=== PATIENT | female | born 1990 | race Caucasian/White ===

== ENCOUNTER 2021-01-31 20:50 | Inpatient (IN) | payer OTHER ==
[~2021-01-31] VITALS: Ht 165.1 cm; Wt 84.0 kg
[2021-01-31 21:21] VITALS: BP 123/68
[2021-01-31] MEDS ORDERED: TERBUTALINE 1 MG/ML, 1ML IVPush PRN (23:30)
[2021-01-31] MEDS: D5%-LACTATED RINGERS 1,000 ML IV SCH (23:30)
[2021-01-31] MEDS ORDERED: OXYTOCIN 30U/ 0.9% NaCL 500ML 500 ML ONE (23:30)
[2021-01-31] MEDS ORDERED: OXYTOCIN 30U/ 0.9% NaCL 500ML 500 ML IV ONE (23:30)
[2021-01-31] MEDS ORDERED: FENTANYL PF 100 MCG/2ML IVPush PRN (23:30)
[2021-01-31] MEDS ORDERED: TERBUTALINE 1 MG/ML, 1ML SQ PRN (23:30)
[2021-01-31] MEDS ORDERED: FENTANYL PF 100 MCG/2ML IV PRN (23:30)
[2021-01-31] MEDS ORDERED: SODIUM CHLORIDE FLUSH 10ML SYR IVF PRN (23:30)
[2021-01-31] MEDS ORDERED: NEWBORN KIT ONE (23:31)
[2021-01-31] MEDS ORDERED: MISOPROSTOL 200 MCG TABLET ONE (23:31)
[2021-01-31 23:43] LABS: BASOPHILS % (AUTO) 0 % (0-1); EOSINOPHILS % (AUTO) 1 % (1-7); LYMPHOCYTES % (AUTO) 17 % (22-44); MEAN CORPUSCULAR HGB CONC 33.2 g/dL (32.4-35.8); MEAN PLATELET VOLUME 9.3 fL (7.4-10.4); MONOCYTES % (AUTO) 8 % (2-9); NEUTROPHILS % (AUTO) 74 % (42-75); PLATELET COUNT 214 x10^3/uL (130-400); RED BLOOD COUNT 4.04 x10^6/uL (3.82-5.3); RED CELL DISTRIBUTION WIDTH 15.4 % (9.6-15.2)
[2021-02-01] MEDS ORDERED: FENTANYL/BUPIV./NS/PF 250 ML EPIDCONT SCH ×2 (00:30→01:30)
[2021-02-01] MEDS ORDERED: BUPIVACAINE 0.25% ONE (00:55)
[2021-02-01] MEDS: LACTATED RINGERS 1,000 ML IV SCH ×4 (00:56→09:30)
[2021-02-01] MEDS ORDERED: LACTATED RINGERS 1,000 ML IVBOLUS PRN (01:30)
[2021-02-01] MEDS ORDERED: NALOXONE 0.4 MG/ML, 1ML IVPush PRN (01:30)
[2021-02-01] MEDS ORDERED: DIPHENHYDRAMINE 50 MG/ML, 1ML IVPush PRN (01:30)
[2021-02-01] MEDS ORDERED: EPHEDRINE 50 MG/ML, 1ML IVPush PRN (01:30)
[2021-02-01] MEDS ORDERED: ONDANSETRON 2MG/ML, 2ML IVPush PRN (01:30)
[2021-02-01] MEDS ORDERED: OXYTOCIN 30U/ 0.9% NaCL 500ML 500 ML IV PRN (05:00)
[2021-02-01] MEDS: D5%-LACTATED RINGERS 1,000 ML IV SCH (07:30)
[2021-02-01] MEDS ORDERED: ONDANSETRON 2MG/ML, 2ML IV PRN (09:00)
[2021-02-01] MEDS ORDERED: ACETAMINOPHEN 325 MG TABLET PO PRN ×2 (09:00)
[2021-02-01] MEDS ORDERED: MISOPROSTOL 200 MCG TABLET PR PRN (09:00)
[2021-02-01] MEDS: PRENATAL VIT/IRON/FA 1 EACH TABLET PO SCH (09:00)
[2021-02-01] MEDS ORDERED: OXYTOCIN 30U/ 0.9% NaCL 500ML 500 ML ONE (09:00)
[2021-02-01] MEDS ORDERED: SIMETHICONE 80 MG CHEW TAB PO PRN (09:00)
[2021-02-01] MEDS ORDERED: OXYcodone/APAP 5/325MG TABLET PO PRN ×2 (09:00)
[2021-02-01] MEDS: OXYTOCIN 30U/ 0.9% NaCL 500ML 500 ML IV SCH ×2 (09:02→19:56)
[2021-02-01 09:39] VITALS: BP 109/54
[2021-02-01 11:11] VITALS: BP 106/66
[2021-02-01 16:30] VITALS: BP 102/64
[2021-02-01 16:41] LABS: BASOPHILS % (AUTO) 0 % (0-1); EOSINOPHILS % (AUTO) 1 % (1-7); LYMPHOCYTES % (AUTO) 11 % (22-44); MEAN CORPUSCULAR HEMOGLOBIN 28.6 pg (27.0-34.8); MEAN CORPUSCULAR HGB CONC 32.3 g/dL (32.4-35.8); MEAN PLATELET VOLUME 9.5 fL (7.4-10.4); MONOCYTES % (AUTO) 7 % (2-9); NEUTROPHILS % (AUTO) 81 % (42-75); PLATELET COUNT 180 x10^3/uL (130-400); RED BLOOD COUNT 3.76 x10^6/uL (3.82-5.3); RED CELL DISTRIBUTION WIDTH 15.5 % (9.6-15.2)
[2021-02-01] MEDS: IBUPROFEN 600 MG TABLET PO PRN (18:56)
[2021-02-01 20:30] VITALS: BP 108/71
[2021-02-01] MEDS: DOCUSATE 100 MG CAPSULE PO PRN (22:25)
[2021-02-01 23:30] VITALS: BP 102/66
[2021-02-02 03:30] VITALS: BP 112/70
[2021-02-02] MEDS: IBUPROFEN 600 MG TABLET PO PRN ×3 (03:36→21:07)
[2021-02-02] MEDS ORDERED: OXYTOCIN 30U/ 0.9% NaCL 500ML 500 ML IV PRN (05:00)
[2021-02-02] MEDS: OXYTOCIN 30U/ 0.9% NaCL 500ML 500 ML IV SCH ×2 (05:13→15:00)
[2021-02-02 07:30] VITALS: BP 108/69
[2021-02-02] MEDS: DOCUSATE 100 MG CAPSULE PO PRN (07:51)
[2021-02-02] MEDS: PRENATAL VIT/IRON/FA 1 EACH TABLET PO SCH (07:51)
[2021-02-02 21:00] VITALS: BP 121/81
[2021-02-03] MEDS: OXYTOCIN 30U/ 0.9% NaCL 500ML 500 ML IV SCH ×4 (01:00→07:41)
[2021-02-03 08:15] VITALS: BP 111/73
[2021-02-03] MEDS: DOCUSATE 100 MG CAPSULE PO PRN (08:26)
[2021-02-03] MEDS: IBUPROFEN 600 MG TABLET PO PRN (08:26)
[2021-02-03] MEDS: PRENATAL VIT/IRON/FA 1 EACH TABLET PO SCH (08:26)
== END 2021-02-03 13:07 | disposition home or self-care (01) | DRG 807 ==
LOC: LDOP 20:50 → LDIP 02-01 00:13 → 2NW 02-01 10:40
PROVIDERS: ADMIT Obstetrics & Gynecology; ATTEND Obstetrics & Gynecology
PROC: 10E0XZZ Delivery of Products of Conception, External Approach (ICD-10-PCS; principal; 2021-02-01)
PROC: 10907ZC Drainage of Amniotic Fluid, Therapeutic from Products of Conception, Via Natural or Artificial Opening (ICD-10-PCS; 2021-02-01)
PROC: 3E0R3BZ Introduction of Anesthetic Agent into Spinal Canal, Percutaneous Approach (ICD-10-PCS; 2021-02-01)
PROC: 00HU33Z Insertion of Infusion Device into Spinal Canal, Percutaneous Approach (ICD-10-PCS; 2021-02-01)
DX: O80 Encounter for full-term uncomplicated delivery (principal); Z37.0 Single live birth; Z3A.37 37 weeks gestation of pregnancy
CPT/HCPCS: 36415; 85025; 86592; 86900; 87635; G0378; J2590; J3010; J7120